=== PATIENT | female | born 1955 | race Caucasian/White ===

== ENCOUNTER 2017-05-19 17:32 | Emergency (ER) | payer SELFPAY ==
[2017-05-19 17:42] VITALS: TEMP 98.2; O2SAT 99
[2017-05-19] MEDS ORDERED: Sodium Chloride 0.9% 1,000 ML IV ONE ×2 (19:29→19:32)
--- NOTE | 2017-05-19 19:29 | C.PDOC ---
History Of Present Illness Patient presents to the ER with a complaint of nausea, vomiting and abdominal pain that started this morning. Patient reports she ate [place] steak with green sauce last night. Patient reports she cannot tolerate PO. Denies fever or chills. Time Seen by Provider: 05/19/17 19:28 Chief Complaint (Nursing): Abdominal Pain History Per: Patient History/Exam Limitations: no limitations Onset/Duration Of Symptoms: Hrs (Since AM) Current Symptoms Are (Timing): Still Present Context: Food ([place] steak w/ green sauce) Severity: Moderate Pain Scale Rating Of: 4 Location Of Pain/Discomfort: Epigastric Radiation Of Pain To:: None Quality Of Discomfort: Unable To Describe Associated Symptoms: Nausea, Vomiting, Loss Of Appetite. denies: Fever, Chills Exacerbating Factors: None Alleviating Factors: None Recent travel outside of the [place]: No Abnormal Vaginal Bleeding: No Past Medical History Reviewed: Historical Data, Nursing Documentation, Vital Signs Vital Signs: Last Vital Signs Temp 98.2 F 05/19/17 17:38 Pulse 70 05/19/17 17:38 Resp 20 05/19/17 17:38 BP 117/73 05/19/17 17:38 Pulse Ox 99 05/19/17 20:19 - Medical History PMH: No Chronic Diseases Surgical History: Appendectomy, Cholecystectomy Family History: States: No Known Family Hx - Social History Hx Alcohol Use: No Hx Substance Use: No - Immunization History Hx Tetanus Toxoid Vaccination: No Hx Influenza Vaccination: No Hx Pneumococcal Vaccination: No Review Of Systems Constitutional: Negative for: Fever, Chills Gastrointestinal: Positive for: Nausea, Vomiting, Abdominal Pain Physical Exam - Physical Exam Appears: Non-toxic Skin: Warm, Dry Oral Mucosa: Moist Chest: Symmetrical, No Tenderness Cardiovascular: Rhythm Regular, No Murmur Respiratory: No Rales, No Rhonchi, No Wheezing Gastrointestinal/Abdominal: Soft, Tenderness (Mid epigastric), No Guarding, No Rebound Neurological/Psych: Oriented x3 ED Course And Treatment - Laboratory Results Result Diagrams: 05/19/17 19:42 05/19/17 19:42 ECG: Interpreted By Me, Viewed By Me ECG Rhythm: Sinus Rhythm (91), Nonspecific Changes (lad) O2 Sat by Pulse Oximetry: 99 (Room air) Pulse Ox Interpretation: Normal Progress Note: EKG, blood work and urinalysis ordered. Pepcid, toradol, zofran and IV fluids administered. Reevaluation Time: 22:08 Reassessment Condition: Improved Disposition Counseled Patient/Family Regarding: Studies Performed, Diagnosis, Need For Followup, Rx Given - Disposition Referrals: [facility] [Outside] [facility] [Outside] Disposition: HOME/ ROUTINE Disposition Time: 19:29 Condition: FAIR Prescriptions: Naproxen [Naprosyn] 1 tab PO BID PRN #25 tab PRN Reason: Pain Ondansetron ODT [Zofran ODT] 1 odt PO BID PRN #6 odt PRN Reason: Nausea/Vomiting Instructions: Renal Colic (ED), Hiatal Hernia (ED) Print Language: IRISH - Clinical Impression Clinical Impression: Abdominal pain, Nausea - Scribe Statement The provider has reviewed the documentation as recorded by the Pastor Peralta All medical record entries made by the Robeibashley were at my direction and personally dictated by me. I have reviewed the chart and agree that the record accurately reflects my personal performance of the history, physical exam, medical decision making, and the department course for this patient. I have also personally directed, reviewed, and agree with the discharge instructions and disposition.
[2017-05-19] MEDS ORDERED: Sodium Chloride 0.9% 1,000 ML ONE (19:37)
[2017-05-19 19:47] LABS: BASO % 0.2 % (0.0-2.0); EOS % 0.1 % (0.0-4.0); LYMPH # 0.7 K/uL (1.0-4.3); LYMPH % 5.4 % (20.0-40.0); MEAN CELL VOLUME 89.6 fL (81.0-99.0); MEAN CORPUSCULAR HEMOGLOBIN 29.3 pg (27.0-31.0); MEAN CORPUSCULAR HGB CONC 32.7 g/dL (33.0-37.0); MEAN PLATELET VOLUME 8.3 fL (7.2-11.7); MONO # 0.4 K/uL (0.0-0.8); MONO % 3.1 % (0.0-10.0); PLATELET COUNT 317 K/uL (130-400); RED CELL DISTRIBUTION WIDTH 14.2 % (11.5-14.5); WHITE BLOOD COUNT 12.4 K/uL (4.8-10.8)
[2017-05-19 20:05] LABS: RBC URINE 4 /hpf (0-3); TRANSITIONAL EPITHIAL < 1 /hpf (0-3); URINE BACTERIA FEW (<OCC); URINE BILIRUBIN NEGATIVE (NEGATIVE); URINE BLOOD 1+ (NEGATIVE); URINE COLOR Amber (YELLOW); URINE GLUCOSE (UA) NORMAL (Normal); URINE KETONE 1+ mg/dL (NEGATIVE); URINE PROTEIN 1+ mg/dL (NEGATIVE); URINE UROBILINOGEN NORMAL mg/dL (0.2-1.0); WBC URINE 13 /hpf (0-5)
[2017-05-19 20:07] LABS: CHLORIDE 108 mmol/L (98-107)
[2017-05-19 20:08] LABS: POTASSIUM 4.1 mmol/L (3.6-5.2); SODIUM 143 mmol/L (132-148); URINE LEUKOCYTE ESTERASE 2+ Leu/uL (Negative)
[2017-05-19 20:10] LABS: ALB/GLOB RATIO 1.3 (1.0-2.1); ALKALINE PHOSPHATASE 111 U/L (38-126); ALT/SGPT 22 U/L (9-52); AST/SGOT 25 U/L (14-36); BILIRUBIN,TOTAL 0.8 mg/dL (0.2-1.3); BLOOD UREA NITROGEN 18 mg/dL (7-17); CARBON DIOXIDE 21 mmol/L (22-30); GFR AFRICAN-AMERICAN > 60; GLUCOSE,RANDOM 117 mg/dL (65-105)
[2017-05-19 20:11] LABS: CALCIUM 8.9 mg/dl (8.6-10.4)
[2017-05-19] MEDS ORDERED: Iohexol 300 100 ML IJ ONE (20:55)
[2017-05-19 21:33] LABS: EOSINOPHIL 1 % (0-4); NEUTROPHIL 86 % (50-75); TOTAL CELLS COUNTED 100
[2017-05-19 22:46] VITALS: BP 123/71; PULSE 76; RESP 17
--- NOTE | 2017-05-20 10:07 | CT ---
PROCEDURE: CT Abdomen and Pelvis with contrast HISTORY: ruq abd pain, n/v COMPARISON: None. TECHNIQUE: Contrast dose: 100 mL Omnipaque 300 Radiation dose: Total exam DLP = 300.86 mGy-cm. This CT exam was performed using one or more of the following dose reduction techniques: Automated exposure control, adjustment of the mA and/or kV according to patient size, and/or use of iterative reconstruction technique. FINDINGS: LOWER THORAX: Small to moderate hiatal hernia. No infiltrate/ effusion. LIVER: Unremarkable. No gross lesion or ductal dilatation. GALLBLADDER AND BILE DUCTS: Status post cholecystectomy PANCREAS: Unremarkable. No gross lesion or ductal dilatation. SPLEEN: Normal size and contour. No mass. Punctate granulomatous calcification. ADRENALS: Unremarkable. No mass. KIDNEYS AND URETERS: 2 mm nonobstructing left upper pole renal calculus. No hydronephrosis. No renal mass. VASCULATURE: Unremarkable. No aortic aneurysm. BOWEL: Unremarkable. No obstruction. No gross mural thickening. APPENDIX: Not identified. No secondary findings to suggest acute appendicitis. PERITONEUM: Unremarkable. No free fluid. No free air. LYMPH NODES: Unremarkable. No enlarged lymph nodes. BLADDER: Unremarkable. REPRODUCTIVE: Unremarkable uterus. BONES: No acute fracture. OTHER FINDINGS: None. IMPRESSION: Nonobstructing 2 mm left upper pole renal calculus. Small to moderate hiatal hernia. Status post cholecystectomy. No evidence of biliary obstruction. Preliminary interpretation of this examination was reported by [employer] at 9:41 p.m. on 05/19/2017. There is concurrence of this report with the preliminary interpretation.
--- NOTE | 2017-05-21 14:24 | CARD ---
APPROVED REPORT EKG Measurement Heart [id number] [id number] <Conclusion> Sinus rhythm with premature supraventricular complexes Possible Left atrial enlargement Left axis deviation T wave abnormality, consider anterior ischemia Abnormal ECG
== END 2017-05-19 22:46 | disposition home or self-care (01) ==
LOC: C.ER 17:32
DX: N39.0 Urinary tract infection, site not specified (principal); R10.9 Unspecified abdominal pain; R11.0 Nausea
CPT/HCPCS: 74177; 80053; 81001; 83690; 85025; 85610; 85730; 96361; 96374; 96375; 99284; J1885; J2405; J7040; Q9967

== ENCOUNTER 2017-07-10 17:40 | Emergency (ER) | payer OTHER ==
[2017-07-10 17:54] VITALS: BP 114/77; PULSE 67; RESP 16; TEMP 98.1; O2SAT 100
[2017-07-10] MEDS ORDERED: Bacitracin 500 Units/gm Oint Foilpak UD ONE (18:41)
--- NOTE | 2017-07-10 18:41 | C.PDOC ---
History Of Present Illness The pt is a 61yo female, presents to the ED for evaluation of left knee swelling and redness s/p trip and fall 5 days ago. She reports cleaning the area with peroxide and neosporin. Also notes the surrounding redness has significantly improved. Pt denies any fever, changes in sensation and no pain with ambulation; she also denies any new injuries. Pt offers no additional medical complaints. 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 Onset/Duration Of Symptoms: Days Current Symptoms Are (Timing): Still Present - Knee Description Of Injury: Fell Past Medical History Reviewed: Historical Data, Nursing Documentation, Vital Signs Vital Signs: Last Vital Signs Temp 98.1 F 07/10/17 17:51 Pulse 67 07/10/17 17:51 Resp 16 07/10/17 17:51 BP 114/77 07/10/17 17:51 Pulse Ox 100 07/10/17 19:18 - Medical History PMH: No Chronic Diseases Surgical History: Appendectomy, Cholecystectomy Family History: States: No Known Family Hx - Social History Hx Alcohol Use: No Hx Substance Use: No - Immunization History Hx Tetanus Toxoid Vaccination: No Hx Influenza Vaccination: No Hx Pneumococcal Vaccination: No Review Of Systems Except As Marked, All Systems Reviewed And Found Negative. Constitutional: Negative for: Fever Musculoskeletal: Positive for: Other (left knee swelling and pain) Neurological: Negative for: Other (sensory changes) Physical Exam - Physical Exam Appears: Well, Non-toxic Skin: Warm, Dry Head: Atraumatic, Normacephalic Eye(s): bilateral: Normal Inspection, EOMI Oral Mucosa: Moist Neck: Normal Chest: Symmetrical Respiratory: No Accessory Muscle Use Extremity: Normal ROM, No Calf Tenderness, No Deformity, No Swelling, Other ( 5cm abrasion on right knee with 2cm surrounding erythema, no purulent drainage noted.) Pulses: Left Dorsalis Pedis: Normal, Right Dorsalis Pedis: Normal Neurological/Psych: Oriented x3, Normal Speech, Normal Motor, Normal Sensation ED Course And Treatment O2 Sat by Pulse Oximetry: 100 (RA) Pulse Ox Interpretation: Normal Progress Note: Erythematous area circled, pt instructed to take antibiotics and return to ED if symptoms worsen or new symptoms arise. Medical Decision Making Medical Decision Making: Wound cleaned and dressed by RN. Pt refuses XR. Disposition - Disposition Disposition: HOME/ ROUTINE Disposition Time: 18:40 Condition: STABLE Additional Instructions: Wound check in 2 days. Vaya a aguila mdico o la clnica en 1-3 joshua sin falta, para mas evaluacin. [place] los medicamentos emelina indicado. Volver a la veronica de emergencia en cualquier momento si los sntomas persisten o empeoran. Prescriptions: Clindamycin [Cleocin] 300 mg PO Q6 #28 cap Instructions: Cellulitis (ED) Forms: [employer] (Amharic) Print Language: KITTITIAN - Clinical Impression Clinical Impression: Knee abrasion, Cellulitis - Scribe Statement The provider has reviewed the documentation as recorded by the Pastor Diaz Provider Attestation: All medical record entries made by the Robeibashley were at my direction and personally dictated by me. I have reviewed the chart and agree that the record accurately reflects my personal performance of the history, physical exam, medical decision making, and the department course for this patient. I have also personally directed, reviewed, and agree with the discharge instructions and disposition.
== END 2017-07-10 18:45 | disposition home or self-care (01) ==
LOC: C.ER 17:40
DX: S80.212A Abrasion, left knee, initial encounter (principal); L03.116 Cellulitis of left lower limb; W01.0XXA Fall on same level from slipping, tripping and stumbling without subsequent striking against object, initial encounter; Y93.9 Activity, unspecified; Y92.9 Unspecified place or not applicable